=== PATIENT | female | born 1985 | race Caucasian/White ===

== ENCOUNTER 2021-04-05 12:50 | Observation (INO) ==
[2021-04-05 13:45] LABS: Pregnancy Test, Urine Negative (Negative)
[2021-04-05 13:50] LABS: Appearance Urine Clear (Clear); Bacteria Urine Automated Negative (Negative); Blood Urine Negative (Negative); Color Urine Orange; Epithelial Cell Urine Auto >30 /lpf (0-5); Glucose Urine UA Negative (Negative); Ketones Urine Trace (Negative); Leukocyte Esterase Urine Trace (Negative); Nitrite Urine Positive (Negative); Protein Urine Trace (Negative); RBC Urine Automated 0-4 /hpf (0-4); Specific Gravity Urine 1.034 (1.000-1.030); Urobilinogen Urine Negative (Negative); pH Urine 5.5 (4.5-7.5)
[2021-04-05 13:52] LABS: Bilirubin Urine 1+ (Negative)
[2021-04-05] MEDS ORDERED: KETOROLAC TROMETHAMINE 15 MG/ML VIAL IV STA (14:43)
[2021-04-05] MEDS ORDERED: SODIUM CHLORIDE 0.9% 1000ML 1,000 ML IV ONE (14:43)
[2021-04-05] MEDS ORDERED: ONDANSETRON INJ 2 MG/ML 2 ML VIAL IV STA (14:43)
[2021-04-05 15:03] LABS: Basophils # (auto) 0.01 K/uL (0-0.2); Basophils % (auto) 0.1 %; Eosinophils # (auto) 0.02 K/uL (0-0.5); Eosinophils % (auto) 0.1 %; Hematocrit (blood only) 40.4 % (37-47); Hemoglobin 13.6 g/dL (12.0-16.0); Immature Granulocytes # (auto) 0.06 K/uL (0.00-0.02); Immature Granulocytes % (auto) 0.3 %; Lymphocytes # (auto) 0.59 K/uL (1.2-3.4); Mean Corpuscular Hemoglobin 29.6 pg (25-34); Mean Corpuscular Hgb Conc 33.7 g/dL (32-36); Mean Platelet Volume 10.5 fL (7.4-10.4); Monocytes # (auto) 0.57 K/uL (0.11-0.59); Monocytes % (auto) 2.9 %; Neutrophils # (auto) 18.51 K/uL (1.4-6.5); Neutrophils % (auto) 93.6 %; Platelet Count 246 K/uL (130-400); RDW Coefficient of Variation 12.6 % (11.5-14.5); RDW Standard Deviation 40.6 fL (36.4-46.3); Red Blood Count 4.59 M/uL (4.2-5.4); White Blood Count 19.76 K/uL (4.8-10.8)
[2021-04-05] MEDS ORDERED: MoRPHine SULFATE 4 MG/ML 1 ML CARP\\VIAL IV STA (15:11)
[2021-04-05] MEDS ORDERED: SODIUM CHLORIDE 0.9% 1000ML 1,000 ML IV SCH (15:15)
[2021-04-05 15:24] LABS: Albumin Level 3.6 gm/dl (3.4-5.0); BUN Creatinine Ratio 24.1 (10-20); Bilirubin Direct 0.3 mg/dl (0-0.2); Calcium 9.2 mg/dl (8.5-10.1); Creatinine Clr Calc Pharmacy 118.3 ml/min; Potassium 4.3 mmol/L (3.5-5.1)
[2021-04-05 15:27] LABS: Total Protein 7.3 gm/dl (6.4-8.2)
[2021-04-05] MEDS ORDERED: OPTIRAY 320 100ml IV ONE (15:58)
--- NOTE | 2021-04-05 16:19 | CT Scan Report ---
CT abd pelvis IV con only CLINICAL HISTORY: epigastric pain TECHNIQUE: Helical axial images of the abdomen and pelvis were obtained and displayed. Automated dose lowering techniques and/or adjustment according to patient size were utilized for this exam. This e xam was performed with intravenous contrast. COMPARISON: None available at the time of this dictation. FINDINGS: Lower chest: No acute abnormality Liver: Unremarkable. No focal lesions are seen. Gallbladder and biliary tree: No calcified gallstones. Normal caliber wall. There is distention of th e extrahepatic bile duct measuring up to 9 mm in diameter. Pancreas: The pancreas appears edematous and there is significant peripancreatic fluid. No evidence o f pseudocyst is seen. Spleen: Unremarkable. Adrenals: Unremarkable. Kidneys and ureters: Unremarkable. Bladder: Unremarkable. Reproductive organs: Unremarkable. Bowel: Unremarkable. Lymph nodes Retroperitoneal: Unremarkable. Mesenteric: Unremarkable. Pelvic: Unremarkable. Peritoneum: Free fluid is noted in the upper abdomen. Vessels: Unremarkable. Abdominal wall: Unremarkable. Bones: Unremarkable. IMPRESSION: Pancreatic edema and peripancreatic fluid and fat stranding compatible with acute pancreatitis. ACT 112: Negative or not required by law. Electronically signed by: Martell Cardenas M.D. 04/05/2021 4:18 PM
[2021-04-05] MEDS ORDERED: HYDROmorphone INJ 1 MG/ML SYRINGE ONE (16:26)
--- NOTE | 2021-04-05 17:07 | Emergency Department Note ---
History of Present Illness General Chief Complaint: Abdominal Pain Stated Complaint: ABDOMINAL JO, BACK PAIN, SOB Time Seen by Provider: 04/05/21 14:41 History of Present Illness Provider Complaint: abdominal pain Onset (ago): 2 day(s) Pain Consistency: constant Location: epigastric Radiation: none Severity: severe Maximum Pain Intensity: 10 Current Pain Intensity: 10 Quality: + stabbing and + sharp Relieved By: + eating Exacerbated By: + nothing Context: + history of similar episodes (History of pancreatitis ); no foreign travel, no possible food poisoning, no sick contacts, no recent antibiotic use, no recent surgery/procedure or no recent injury Associated Symptoms: + nausea and + vomiting; no diarrhea, no fever, no chills, no constipation, no dysuria, no hematemesis, no hematochezia, no melena, no hematuria, no anorexia, no syncope, no headache, no neck pain, no back pain, no chest pain, no weakness, no breathing difficulty and no numbness Home Medications Medication Instructions Recorded Confirmed Type dextroamphetamine-amphetamine 30 See Rx Instructions .ROUTE .COMPLEX 04/05/21 04/05/21 History mg tablet dextroamphetamine-amphetamine ER 40 mg PO QAM 04/05/21 04/05/21 History 20 mg 24hr capsule,extend release propranolol 10 mg tablet See Rx Instructions .ROUTE .COMPLEX 04/05/21 04/05/21 History trazodone 50 mg tablet 50 mg PO HS PRN 04/05/21 04/05/21 History venlafaxine 150 mg 150 mg PO QAM 04/05/21 04/05/21 History capsule,extended release 24 hr venlafaxine 75 mg capsule,extended 75 mg PO QAM 04/05/21 04/05/21 History release 24 hr Allergies Allergy/AdvReac Type Severity Reaction Status Date / Time No Known Allergies Allergy Unverified 04/05/21 16:02 Past Med/Surg History Medical History (Updated 04/05/21 @ 20:42 by Hong Swan) ADD (attention deficit disorder) Anxiety Congenital anomaly of pancreas Pancreatitis Surgical History (Updated 04/05/21 @ 17:04 by Hong Swan) History of abdominal surgery Family History (Updated 04/05/21 @ 19:56 by Kaelyn Ching PA-C) Other Cancer Diabetes Hypertension Social History (Updated 04/05/21 @ 19:57 by Kaelyn Ching PA-C) Smoking Status: Former smoker Hx Alcohol Use: Yes Alcohol type: beer and wine Alcohol Intake Frequency: 2-4 x/Month Hx Substance Use: No Preferred Language: Gibraltarian Feels Safe at Home: Yes Review of Systems A total of 10 systems reviewed and were otherwise negative Physical Exam Vital Signs: Vital Signs - 24 hr 04/05/21 12:59 04/05/21 14:39 04/05/21 14:47 Temperature 36.4 C L 36.6 C Temperature Source Oral Oral Pulse Rate 109 H 97 H Pulse Rate [Apical ] 96 H Pulse Rate from Sp O2 Sensor 97 H Pulse Rhythm [Apic al] Regular Pulse Strength [Ap ical] Normal Respiratory Rate 16 18 27 H Respiratory Effort / Characteristics Non-Labored Non-Labored Sponta neous Respiratory Depth Normal Normal Respiratory Patter n Blood Pressure 114/76 Blood Pressure [Ri ght Arm] 113/92 Blood Pressure Honey n 88 Blood Pressure Honey n [Right Arm] 99 Blood Pressure Pos ition [Right Arm] Semi-fowlers Pulse Oximetry 99 98 99 Oxygen Delivery Me thod Room Air Sepsis Recent Feve r Within 48 Hours No Sepsis New/Unexpla ined Change in Men lorrie Status No Sepsis Action Take n by Nursing No Action Required 04/05/21 15:00 04/05/21 16:00 Temperature Temperature Source Pulse Rate 92 H Pulse Rate [Apical ] 94 H Pulse Rate from Sp O2 Sensor 92 H Pulse Rhythm [Apic al] Regular Pulse Strength [Ap ical] Normal Respiratory Rate 14 19 Respiratory Effort / Characteristics Non-Labored Sponta neous Respiratory Depth Normal Respiratory Patter n Regular Blood Pressure Blood Pressure [Ri ght Arm] 98/70 L Blood Pressure Honey n Blood Pressure Honey n [Right Arm] 79 Blood Pressure Pos ition [Right Arm] Lying Pulse Oximetry 100 100 Oxygen Delivery Me thod Room Air Sepsis Recent Feve r Within 48 Hours Sepsis New/Unexpla ined Change in Men lorrie Status Sepsis Action Take n by Nursing Physical Exam: Physical Exam GENERAL: She is oriented to person, place, and time. She appears well-developed and well-nourished. She does not appear distressed. HENT: Exam performed. -Head: Normocephalic and atraumatic. -Right Ear: External ear normal. No mastoid tenderness. -Left Ear: External ear normal. No mastoid tenderness. -Mouth/Throat: The oropharynx is clear and moist. No trismus in the jaw. No dental abscesses or uvula swelling. No oropharyngeal exudate or tonsillar abscesses. EYES: Conjunctivae and EOM are normal. Pupils are equal, round, and reactive to light. Right eye exhibits no discharge. Left eye exhibits no discharge. No scleral icterus. NECK: Normal range of motion. Neck supple. No JVD present. No spinous process tenderness present. No carotid bruit present. No rigidity. No tracheal deviation and normal range of motion present. No Brudzinski's sign and no Kernig's sign noted. CV: Normal rate, regular rhythm, normal heart sounds and intact distal pulses. There is no peripheral edema. Palpable radial pulses bue. PULM/CHEST: Effort normal and breath sounds normal. No respiratory distress. No stridor. She has no wheezes. She has no rales. -Chest Wall: She exhibits no tenderness. ABD: The abdomen is soft. Bowel sounds are normal. She has no distension. No mass is present. There is to palpation of the epigastric area tenderness. There is no rebound, no guarding, no Beck's sign and no tenderness at McBurney's point. Rovsig negative MUSC/SKEL: Normal range of motion. There is no peripheral edema, tenderness or deformity. LYMPH: No cervical adenopathy. NEURO: She is alert and oriented to person, place, and time. She has normal strength. No cranial nerve deficit or sensory deficit. Coordination and gait normal. GCS eye subscore is 4. GCS verbal subscore is 5. GCS motor subscore is 6. Cerebellar tests wnl. SKIN: Skin is warm and dry. She is not diaphoretic. PSYCH: She has a normal mood and affect. Behavior is normal. Judgment and thought content normal. Course Course 1441: The patient was evaluated in room C6. A complete history and physical exam was performed Cardiac monitoring: An order was placed for continuous cardiac monitoring. The monitor shows a rate of 900 with sinus rhythm 1700: Vital signs stable. Elevated lipase and CT imaging showing pancreatitis. Patient will be admitted to the [facility] team Dr. Bazan Administered Medications Sodium Chloride (Nss 1000ml) 1,000 mls @ 125 mls/hr IV .Q8H KELSEY Stop: 05/05/21 15:14 Last Admin: 04/05/21 16:31 Dose: 125 mls/hr Documented by: [id number] Discontinued Medications Hydromorphone HCl (Hydromorphone Inj 1 Mg/Ml Syringe) Confirm Administered Dose 1 mg .ROUTE .STK-MED ONE Stop: 04/05/21 16:27 Last Admin: 04/05/21 16:33 Dose: 1 mg Documented by: [id number] Hydromorphone HCl (Hydromorphone Inj 0.5 Mg/0.5 Ml Syr) Confirm Administered Dose 0.5 mg .ROUTE .STK-MED ONE Stop: 04/05/21 19:34 Last Admin: 04/05/21 19:34 Dose: 0.5 mg Documented by: [id number] Sodium Chloride (Nss 1000ml) 1,000 mls @ 999 mls/hr IV .Q1H1M ONE Stop: 04/05/21 15:43 Last Infusion: 04/05/21 16:30 Dose: 0 mls/hr Documented by: [id number] Admin: 04/05/21 14:56 Dose: 999 mls/hr Documented by: [id number] Ioversol (Optiray 320 100ml) 90 ml IV ONCE ONE Stop: 04/05/21 15:59 Last Admin: 04/05/21 15:58 Dose: 90 ml Documented by: [id number] Ketorolac Tromethamine (Ketorolac Tromethamine 15 Mg/Ml Vial) 15 mg IV NOW STA Stop: 04/05/21 14:44 Last Admin: 04/05/21 15:00 Dose: 15 mg Documented by: [id number] Morphine Sulfate (Morphine Sulfate 4 Mg/Ml 1 Ml Carp\Vial) 4 mg IV NOW STA Stop: 04/05/21 15:12 Last Admin: 04/05/21 15:20 Dose: 4 mg Documented by: [id number] Ondansetron HCl (Ondansetron Inj 2 Mg/Ml 2 Ml Vial) 4 mg IV NOW STA Stop: 04/05/21 14:44 Last Admin: 04/05/21 14:59 Dose: 4 mg Documented by: [id number] Medical Decision Making Laboratory Data Result diagrams: 04/05/21 14:51 04/05/21 14:51 Lab Results 04/05/21 04/05/21 04/05/21 Range/Units 13:00 13:00 14:51 WBC 19.76 H (4.8-10.8) K/uL RBC 4.59 (4.2-5.4) M/uL Hgb 13.6 (12.0-16.0) g/dL Hct 40.4 (37-47) % MCV 88.0 (80-100) fL MCH 29.6 (25-34) pg MCHC 33.7 (32-36) g/dL RDW Std Deviation 40.6 (36.4-46.3) fL RDW Coeff of Carmen 12.6 (11.5-14.5) % Plt Count 246 (130-400) K/uL MPV 10.5 H (7.4-10.4) fL Immature Gran % (Auto) 0.3 % Neut % (Auto) 93.6 % Lymph % (Auto) 3.0 % [place] % (Auto) 2.9 % Eos % (Auto) 0.1 % Baso % (Auto) 0.1 % Neut # (Auto) 18.51 H (1.4-6.5) K/uL Lymph # (Auto) 0.59 L (1.2-3.4) K/uL [place] # (Auto) 0.57 (0.11-0.59) K/uL Eos # (Auto) 0.02 (0-0.5) K/uL Baso # (Auto) 0.01 (0-0.2) K/uL Immature Gran # (Auto) 0.06 H (0.00-0.02) K/uL Sodium (136-145) mmol/L Potassium (3.5-5.1) mmol/L Chloride (98-107) mmol/L Carbon Dioxide (21-32) mmol/L Anion Gap (3-11) BUN (7-18) mg/dl Creatinine (0.6-1.2) mg/dl Est Cr Clr Drug Dosing ml/min Est GFR ( Amer) ml/min Est GFR (Non-Af Amer) ml/min BUN/Creatinine Ratio (10-20) Glucose (70-99) mg/dl Calcium (8.5-10.1) mg/dl Total Bilirubin (0.2-1) mg/dl Direct Bilirubin (0-0.2) mg/dl AST (15-37) U/L ALT (12-78) U/L Alkaline Phosphatase (45-117) U/L Total Protein (6.4-8.2) gm/dl Albumin (3.4-5.0) gm/dl Lipase (73-393) U/L Urine Color Snyder Urine Appearance Clear (Clear) Urine pH 5.5 (4.5-7.5) Ur Specific [place] 1.034 H (1.000-1.030) Urine Protein Trace H (Negative) Urine Glucose (UA) Negative (Negative) Urine Ketones Trace H (Negative) Urine Blood Negative (Negative) Urine Nitrite Positive A (Negative) Urine Bilirubin 1+ H (Negative) Urine Urobilinogen Negative (Negative) Ur Leukocyte Esterase Trace H (Negative) Urine WBC (Auto) 1-5 (0-5) /hpf Urine RBC (Auto) 0-4 (0-4) /hpf U Hyaline Cast (Auto) 1-5 (0-5) /lpf U Epithel Cells (Auto) >30 H (0-5) /lpf Urine Bacteria (Auto) Negative (Negative) Urine Test Negative (Negative) 04/05/21 Range/Units 14:51 WBC (4.8-10.8) K/uL RBC (4.2-5.4) M/uL Hgb (12.0-16.0) g/dL Hct (37-47) % MCV (80-100) fL MCH (25-34) pg MCHC (32-36) g/dL RDW Std Deviation (36.4-46.3) fL RDW Coeff of Carmen (11.5-14.5) % Plt Count (130-400) K/uL MPV (7.4-10.4) fL Immature Gran % (Auto) % Neut % (Auto) % Lymph % (Auto) % [place] % (Auto) % Eos % (Auto) % Baso % (Auto) % Neut # (Auto) (1.4-6.5) K/uL Lymph # (Auto) (1.2-3.4) K/uL [place] # (Auto) (0.11-0.59) K/uL Eos # (Auto) (0-0.5) K/uL Baso # (Auto) (0-0.2) K/uL Immature Gran # (Auto) (0.00-0.02) K/uL Sodium 138 (136-145) mmol/L Potassium 4.3 (3.5-5.1) mmol/L Chloride 105 (98-107) mmol/L Carbon Dioxide 26 (21-32) mmol/L Anion Gap 7.0 (3-11) BUN 17 (7-18) mg/dl Creatinine 0.72 (0.6-1.2) mg/dl Est Cr Clr Drug Dosing 118.3 ml/min Est GFR ( Amer) 124.0 ml/min Est GFR (Non-Af Amer) 107.0 ml/min BUN/Creatinine Ratio 24.1 H (10-20) Glucose 103 H (70-99) mg/dl Calcium 9.2 (8.5-10.1) mg/dl Total Bilirubin 1.0 (0.2-1) mg/dl Direct Bilirubin 0.3 H (0-0.2) mg/dl AST 75 H (15-37) U/L ALT 70 (12-78) U/L Alkaline Phosphatase 89 (45-117) U/L Total Protein 7.3 (6.4-8.2) gm/dl Albumin 3.6 (3.4-5.0) gm/dl Lipase 09511 H (73-393) U/L Urine Color Urine Appearance (Clear) Urine pH (4.5-7.5) Ur Specific [place] (1.000-1.030) Urine Protein (Negative) Urine Glucose (UA) (Negative) Urine Ketones (Negative) Urine Blood (Negative) Urine Nitrite (Negative) Urine Bilirubin (Negative) Urine Urobilinogen (Negative) Ur Leukocyte Esterase (Negative) Urine WBC (Auto) (0-5) /hpf Urine RBC (Auto) (0-4) /hpf U Hyaline Cast (Auto) (0-5) /lpf U Epithel Cells (Auto) (0-5) /lpf Urine Bacteria (Auto) (Negative) Urine Test (Negative) Imaging Data Radiologist's Impression: Abdomen/Pelvis CT 04/05/21 15:16 CT abd pelvis IV con only CLINICAL HISTORY: epigastric pain TECHNIQUE: Helical axial images of the abdomen and pelvis were obtained and displayed. Automated dose lowering techniques and/or adjustment according to patient size were utilized for this exam. This exam was performed with intravenous contrast. COMPARISON: None available at the time of this dictation. FINDINGS: Lower chest: No acute abnormality Liver: Unremarkable. No focal lesions are seen. Gallbladder and biliary tree: No calcified gallstones. Normal caliber wall. There is distention of the extrahepatic bile duct measuring up to 9 mm in diameter. Pancreas: The pancreas appears edematous and there is significant peripancreatic fluid. No evidence of pseudocyst is seen. Spleen: Unremarkable. Adrenals: Unremarkable. Kidneys and ureters: Unremarkable. Bladder: Unremarkable. Reproductive organs: Unremarkable. Bowel: Unremarkable. Lymph nodes Retroperitoneal: Unremarkable. Mesenteric: Unremarkable. Pelvic: Unremarkable. Peritoneum: Free fluid is noted in the upper abdomen. Vessels: Unremarkable. Abdominal wall: Unremarkable. Bones: Unremarkable. IMPRESSION: Pancreatic edema and peripancreatic fluid and fat stranding compatible with acute pancreatitis. ACT 112: Negative or not required by law. Electronically signed by: Martell Cardenas M.D. 04/05/2021 4:18 PM MDM Narrative Vital signs stable. Elevated lipase and CT imaging showing pancreatitis. Patient [facility] be [facility] team Dr. Bazan Impression & Plan Pancreatitis Discharge Plan Visit Data Chief Complaint: Abdominal Pain Stated Complaint: ABDOMINAL JO, BACK PAIN, SOB ED Provider: Hong Swan Discharge Problem: Pancreatitis Patient Disposition: Admitted As Inpatient
--- NOTE | 2021-04-05 17:21 | History & Physical Report ---
Date of Service April 05, 2021 History of Present Illness Chief Complaint: abdominal pain Primary Care Provider: Karen Lopez DO Allergies Allergy/AdvReac Type Severity Reaction Status Date / Time No Known Allergies Allergy Unverified 04/05/21 16:02 Home Medications Medication Instructions Recorded Confirmed Type dextroamphetamine-amphetamine 30 See Rx Instructions .ROUTE .COMPLEX 04/05/21 04/05/21 History mg tablet dextroamphetamine-amphetamine ER 40 mg PO QAM 04/05/21 04/05/21 History 20 mg 24hr capsule,extend release propranolol 10 mg tablet See Rx Instructions .ROUTE .COMPLEX 04/05/21 04/05/21 History trazodone 50 mg tablet 50 mg PO HS PRN 04/05/21 04/05/21 History venlafaxine 150 mg 150 mg PO QAM 04/05/21 04/05/21 History capsule,extended release 24 hr venlafaxine 75 mg capsule,extended 75 mg PO QAM 04/05/21 04/05/21 History release 24 hr Past Med/Surg History Medical History (Updated 04/05/21 @ 17:10 by Hong Swan) Congenital anomaly of pancreas No pertinent family history Pancreatitis Surgical History (Updated 04/05/21 @ 17:04 by Hong Swan) History of abdominal surgery Social History Smoking Status: Never smoker Preferred Language: Belarusian Feels Safe at Home: Yes Results & Data Results & Data ([facility]) Vital Signs (Past 12 Hours) Vital Signs Temp Pulse Pulse Resp BP BP Pulse Ox 04/05/21 16:00 94 H 19 98/70 L 100 04/05/21 14:39 36.6 C 96 H 18 113/92 98 04/05/21 12:59 36.4 C L 109 H 16 114/76 99 Supervising Physician Co-Signing Physician Notes Attending Addendum: care coordinated with LANDON Barrow please refer to her notes for full details, I agree with her notes patient seen and examined, records reviewed by myself as well on exam, patient seen resting in bed, sitting up not in distress, very pleasant states her abdominal pain is better, 7/10 no fever/chills no chest pain, dyspnea, palpitations, dizziness no other symptoms VS noted and reviewed oriented x 3, not in distress, speaks in sentences with no effort nor accessory muscle use normal rate, regular rhythm, no murmurs clear breath sounds bilaterally non distended, soft, (+) moderate tenderness on all quadrants no bipedal edema, erythema, warmth no neuro deficits WBC 19.7 Hg 13.6 Crea 0.72 Lipase 21,568 CT abd/pelvis: Pancreatic edema and peripancreatic fluid and fat stranding compatible with acute pancreatitis. ASSESSMENT AND PLAN> ACUTE PANCREATITIS, RECURRENT LIKELY RELATED TO ALCOHOL INTAKE LFTs within normal limits except for mild AST 75 elevation NPO except ice chips, sips LR at 200cc/hr Pain control, antiemetic GI Consult other diagnoses and plan of care as per LANDON Cavanaugh notes Nilay Bazan MD
[2021-04-05] MEDS ORDERED: HYDROmorphone INJ 0.5 MG/0.5 ML SYR ONE (19:33)
--- NOTE | 2021-04-05 19:47 | Gastrointestinal Consultation ---
Date of Consultation April 05, 2021 Supervising Physician Co-Signing Physician Notes Recurrent pancreatitis, history of pancreas surgery as a child, she reports this is her fourth episode of pancreatitis. Obtain MRCP IV fluids NPO Trend lft's ? idopathic recurrent pancreatitis given history versus gallstone pancreatitis. History of Present Illness Reason for Consultation: Abdominal pain/pancreatitis Requesting Physician: [place] History of Present Illness 35 yo fm with a history of abdominal pain that brought her into the er. Workup thus far showing pancreatitis per imaging and also per lipase elevation. No associated fevers, chills, chest pain, + nausea, + bilious vomiting x 2, no diarrhea, no hematemesis, no hematochezia, no weight loss. 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 Thereafter since [facility] with 3 episodes of pancreatitis since 2005 that were related to etoh use she was told. She has not had a bout of pancreatitis since 2017. Never seen by GI at the [facility], but follows with Dr. Lopez. Currently pain is a bit better after fluids though feeling like it is about to get worse. Denies nsaid use, no new herbal supplements or medications, no recent singificant etoh use (she drinks 1-2 drinks a few times a week), no travel, no recent history of covid that she is aware of, denies recent ingestion of fatty foods, no issues with high cholesterol. She still has her gallbladder. Pmhx: None Pshx: Pancreas reconstruction Soc hx: With 3 kids Social etoh use No other drug use Allergies Allergy/AdvReac Type Severity Reaction Status Date / Time No Known Allergies Allergy Unverified 04/05/21 16:02 Home Medications Medication Instructions Recorded Confirmed Type dextroamphetamine-amphetamine 30 See Rx Instructions .ROUTE .COMPLEX 04/05/21 04/05/21 History mg tablet dextroamphetamine-amphetamine ER 40 mg PO QAM 04/05/21 04/05/21 History 20 mg 24hr capsule,extend release propranolol 10 mg tablet See Rx Instructions .ROUTE .COMPLEX 04/05/21 04/05/21 History trazodone 50 mg tablet 50 mg PO HS PRN 04/05/21 04/05/21 History venlafaxine 150 mg 150 mg PO QAM 04/05/21 04/05/21 History capsule,extended release 24 hr venlafaxine 75 mg capsule,extended 75 mg PO QAM 04/05/21 04/05/21 History release 24 hr Patient History Medical History (Updated 04/05/21 @ 17:10 by Hong Swan) Congenital anomaly of pancreas No pertinent family history Pancreatitis Surgical History (Updated 04/05/21 @ 17:04 by Hong Swan) History of abdominal surgery Social History Smoking Status: Never smoker Preferred Language: Telugu Feels Safe at Home: Yes Review of Systems Review of Systems: All systems reviewed & are unremarkable except as noted in HPI & below Physical Exam Physical Exam: Well nourished fm in nad Eyes: PERRL, conjunctivae normal, anicteric sclerae Respiratory: normal respiratory effort, lungs clear to auscultation Gastrointestinal (Abdomen): normal bowel sounds, soft, nontender, no hepatosplenomegaly Neurologic: PERRL, EOMI, accommodation nl, no face palsy, no dysarthria Results & Data ([facility]) Vital Signs (Past 12 Hours) Vital Signs Temp Pulse Pulse Resp BP BP Pulse Ox 04/05/21 19:00 94 H 20 101/64 100 04/05/21 16:00 94 H 19 98/70 L 100 04/05/21 15:00 92 H 14 100 04/05/21 14:47 97 H 27 H 99 04/05/21 14:39 36.6 C 96 H 18 113/92 98 04/05/21 12:59 36.4 C L 109 H 16 114/76 99 Laboratory Results Lipase elevation TB normal Slight wbc count elevation Rest of bmp is normal Mild lft bump Diagnostic Findings Imaging reviewed- ? cbd dilation
--- NOTE | 2021-04-05 20:01 | History & Physical Report ---
Date of Service April 05, 2021 Assessment & Plan (1) Pancreatitis: Plan: Acute pancreatitis H/O recurrent pancreatitis Patient is 35-year-old female with history recurrent pancreatitis, ADD, anxiety scented to ER with complaint of abdominal pain x1 day. Upper abdominal pain radiating to back, nausea. Prior h/o pancreatitic surgery as a child. 2 glasses wine last night. In ER patient afebrile, P: 109 down to 94, BP 114/76, 99% on room air. WBC: 19, lipase: 21,000, T bili: 1.0, AST: 75, ALT: 70, alk phos: 89 In ER given Toradol, Dilaudid, 1 L NSS, Zofran N.p.o. LR at 200 mL/hour Antinausea and pain control as needed GI consult CBC, CMP, lipase in a.m. (2) ADD (attention deficit disorder): (3) Anxiety: Plan: Continue home meds DVT Prophylaxis -SCDs Follows with Dr Karen Lopez for routine care Pt was seen and care coordinated with Dr Bazan. See addendum History of Present Illness Chief Complaint: Abdominal pain Primary Care Provider: Karen Lopez DO Patient is 35-year-old female with history recurrent pancreatitis, ADD, anxiety scented to ER with complaint of abdominal pain x1 day. Patient reports upper abdominal pain radiating to back. Also complains of nausea. She reports this feels like prior episodes of pancreatitis. Reports this morning pain was intense and felt like it caused her to be SOB. Denies SOB currently. Patient reports had history surgery on pancreas when she was 3 years old, she thinks she had pancreas divisum. Patient states prior episodes of pancreatitis have been triggered by alcohol. She reports she had 2 glasses of wine last night. Denies fever/chills, diaphoresis, V/D/C, RODRIGUEZ, dizziness, syncope, vision changes, neck pain, CP, orthopnea, palpitations, cough, sore throat, choking, otalgia, rhinorrhea, paresthesias, weakness, extremity weakness, extremity edema, rashes, urinary symptoms. In ER patient afebrile, P: 109 down to 94, BP 114/76, 99% on room air. WBC: 19, lipase: 21,000, T bili: 1.0, AST: 75, ALT: 70, alk phos: 89 In ER given Toradol, Dilaudid, 1 L NSS, Zofran Allergies Allergy/AdvReac Type Severity Reaction Status Date / Time No Known Allergies Allergy Unverified 04/05/21 16:02 Home Medications Medication Instructions Recorded Confirmed Type dextroamphetamine-amphetamine 30 See Rx Instructions .ROUTE .COMPLEX 04/05/21 04/05/21 History mg tablet dextroamphetamine-amphetamine ER 40 mg PO QAM 04/05/21 04/05/21 History 20 mg 24hr capsule,extend release propranolol 10 mg tablet See Rx Instructions .ROUTE .COMPLEX 04/05/21 04/05/21 History trazodone 50 mg tablet 50 mg PO HS PRN 04/05/21 04/05/21 History venlafaxine 150 mg 150 mg PO QAM 04/05/21 04/05/21 History capsule,extended release 24 hr venlafaxine 75 mg capsule,extended 75 mg PO QAM 04/05/21 04/05/21 History release 24 hr Past Med/Surg History Medical History (Updated 04/05/21 @ 20:42 by Hong Swan) ADD (attention deficit disorder) Anxiety Congenital anomaly of pancreas Pancreatitis Surgical History (Updated 04/05/21 @ 17:04 by Hong Swan) History of abdominal surgery Family History (Updated 04/05/21 @ 19:56 by Kaelyn Ching PA-C) Other Cancer Diabetes Hypertension Social History (Updated 04/05/21 @ 19:57 by Kaelyn Ching PA-C) Smoking Status: Former smoker Second Hand Exposure: No; Do You Dip or Chew Tobacco: No; Hx Alcohol Use: Yes Alcohol type: wine Alcohol Intake Frequency: 2-4 x/Month Hx Substance Use: No Preferred Language: Spanish [employer] Required: No Beliefs That Will Affect Care: None Current Living Situation: Spouse and Family Other Information That Helps Us Care for You: No Feels Safe at Home: Yes Safety Concerns: Feels Safe At This Time Assistive Devices: Contacts and Glasses Review of Systems Review of Systems: All systems reviewed & are unremarkable except as noted in HPI & below Physical Exam Physical Exam: General: no distress, WDWN Head: normocephalic, atraumatic Eyes: PERRL, EOM's intact, conjunctiva non-injected, anicteric ENT: normal inspection external ears, nose, mucous membranes moist Neck: supple, trachea midline, non-tender Lungs: clear, no respiratory distress, no wheezing/rhonchi/rales CV: RRR, no murmur, no JVD, no pretibial edema Abd: normal BS, soft, non-tender Ext: no cyanosis, no calf tenderness Neuro: A&O x 3, no focal deficits noted, normal affect Skin: warm, dry Results & Data Results & Data ([facility]) Vital Signs (Past 12 Hours) Vital Signs Temp Pulse Pulse Resp BP BP Pulse Ox 04/05/21 19:00 94 H 20 101/64 100 04/05/21 16:00 94 H 19 98/70 L 100 04/05/21 15:00 92 H 14 100 04/05/21 14:47 97 H 27 H 99 04/05/21 14:39 36.6 C 96 H 18 113/92 98 04/05/21 12:59 36.4 C L 109 H 16 114/76 99 Laboratory Results Short CBC 04/05/21 Range/Units 14:51 WBC 19.76 H (4.8-10.8) K/uL Hgb 13.6 (12.0-16.0) g/dL Hct 40.4 (37-47) % Plt Count 246 (130-400) K/uL BMP 04/05/21 14:51 Sodium 138 Potassium 4.3 Chloride 105 Carbon Dioxide 26 BUN 17 Creatinine 0.72 Glucose 103 H Calcium 9.2 Liver Function 04/05/21 Range/Units 14:51 Total Bilirubin 1.0 (0.2-1) mg/dl Direct Bilirubin 0.3 H (0-0.2) mg/dl AST 75 H (15-37) U/L ALT 70 (12-78) U/L Alkaline Phosphatase 89 (45-117) U/L Albumin 3.6 (3.4-5.0) gm/dl Urine 04/05/21 Range/Units 13:00 Urine Color [place] Urine Appearance Clear (Clear) Urine pH 5.5 (4.5-7.5) Ur Specific [place] 1.034 H (1.000-1.030) Urine Protein Trace H (Negative) Urine Glucose (UA) Negative (Negative) Diagnostic Findings Abdomen/Pelvis CT 04/05/21 15:16 CT abd pelvis IV con only CLINICAL HISTORY: epigastric pain TECHNIQUE: Helical axial images of the abdomen and pelvis were obtained and displayed. Automated dose lowering techniques and/or adjustment according to patient size were utilized for this exam. This exam was performed with intravenous contrast. COMPARISON: None available at the time of this dictation. FINDINGS: Lower chest: No acute abnormality Liver: Unremarkable. No focal lesions are seen. Gallbladder and biliary tree: No calcified gallstones. Normal caliber wall. There is distention of the extrahepatic bile duct measuring up to 9 mm in diameter. Pancreas: The pancreas appears edematous and there is significant peripancreatic fluid. No evidence of pseudocyst is seen. Spleen: Unremarkable. Adrenals: Unremarkable. Kidneys and ureters: Unremarkable. Bladder: Unremarkable. Reproductive organs: Unremarkable. Bowel: Unremarkable. Lymph nodes Retroperitoneal: Unremarkable. Mesenteric: Unremarkable. Pelvic: Unremarkable. Peritoneum: Free fluid is noted in the upper abdomen. Vessels: Unremarkable. Abdominal wall: Unremarkable. Bones: Unremarkable. IMPRESSION: Pancreatic edema and peripancreatic fluid and fat stranding compatible with acute pancreatitis. ACT 112: Negative or not required by law. Electronically signed by: Martell Cardenas M.D. 04/05/2021 4:18 PM Supervising Physician Co-Signing Physician Notes Attending Addendum: care coordinated with LANDON Barrow please refer to her notes for full details, I agree with her notes patient seen and examined, records reviewed by myself as well on exam, patient seen resting in bed, sitting up not in distress, very pleasant states her abdominal pain is better, 7/10 no fever/chills no chest pain, dyspnea, palpitations, dizziness no other symptoms VS noted and reviewed oriented x 3, not in distress, speaks in sentences with no effort nor accessory muscle use normal rate, regular rhythm, no murmurs clear breath sounds bilaterally non distended, soft, (+) moderate tenderness on all quadrants no bipedal edema, erythema, warmth no neuro deficits WBC 19.7 Hg 13.6 Crea 0.72 Lipase 21,568 CT abd/pelvis:Pancreatic edema and peripancreatic fluid and fat stranding compatible with acute pancreatitis. ASSESSMENT AND PLAN> ACUTE PANCREATITIS, RECURRENT LIKELY RELATED TO ALCOHOL INTAKE LFTs within normal limits except for mild AST 75 elevation NPO except ice chips, sips LR at 200cc/hr Pain control, antiemetic GI Consult other diagnoses and plan of care as per LANDON Bazan MD
[2021-04-05] MEDS: LACTATED RINGER'S 1,000 ML IV SCH (21:30)
[2021-04-05] MEDS ORDERED: PROMETHAZINE HCL 12.5 MG in SODIUM CHLORIDE 0.9% 50 ML IV PRN (21:30)
[2021-04-06] MEDS: HYDROmorphone INJ 0.5 MG/0.5 ML SYR IV PRN ×4 (01:29→19:49)
[2021-04-06] MEDS: LACTATED RINGER'S 1,000 ML IV SCH ×5 (01:48→23:01)
[2021-04-06] MEDS: VENLAFAXINE HCL XR 150 MG CAPXR PO SCH (07:57)
[2021-04-06] MEDS: VENLAFAXINE HCL XR 75 MG CAPXR PO SCH (07:57)
[2021-04-06 09:19] LABS: Hematocrit (blood only) 33.3 % (37-47); Hemoglobin 11.1 g/dL (12.0-16.0); Mean Corpuscular Hemoglobin 29.7 pg (25-34); Mean Corpuscular Hgb Conc 33.3 g/dL (32-36); Mean Platelet Volume 10.6 fL (7.4-10.4); Platelet Count 210 K/uL (130-400); RDW Standard Deviation 42.1 fL (36.4-46.3); Red Blood Count 3.74 M/uL (4.2-5.4); White Blood Count 12.21 K/uL (4.8-10.8)
[2021-04-06 09:47] LABS: Basophils # (auto) 0.01 K/uL (0-0.2); Basophils % (auto) 0.1 %; Eosinophils # (auto) 0.07 K/uL (0-0.5); Eosinophils % (auto) 0.6 %; Immature Granulocytes # (auto) 0.02 K/uL (0.00-0.02); Immature Granulocytes % (auto) 0.2 %; Lymphocytes # (auto) 0.92 K/uL (1.2-3.4); Lymphocytes % (auto) 7.5 %; Monocytes # (auto) 0.62 K/uL (0.11-0.59); Monocytes % (auto) 5.1 %; Neutrophils # (auto) 10.57 K/uL (1.4-6.5); Neutrophils % (auto) 86.5 %
[2021-04-06 09:56] LABS: Alanine Aminotransferase 41 U/L (12-78); Albumin Globulin Ratio 0.8 (0.9-2); Albumin Level 2.6 gm/dl (3.4-5.0); Alkaline Phosphatase 77 U/L (45-117); Aspartate Aminotransferase 28 U/L (15-37); BUN Creatinine Ratio 11.9 (10-20); Bilirubin,Total 0.6 mg/dl (0.2-1); Blood Urea Nitrogen 8 mg/dl (7-18); Calcium 8.4 mg/dl (8.5-10.1); Carbon Dioxide 24 mmol/L (21-32); Chloride 110 mmol/L (98-107); Creatinine Clr Calc Pharmacy 135.8 ml/min; Est GFR (African American) 132.1 ml/min; Globulin 3.2 gm/dl (2.5-4.0); Glucose 80 mg/dl (70-99); Lipase 8525 U/L (73-393); Potassium 3.5 mmol/L (3.5-5.1); Sodium 140 mmol/L (136-145); Total Protein 5.8 gm/dl (6.4-8.2)
[2021-04-06 10:53] LABS: Bilirubin Direct < 0.1 mg/dl (0-0.2)
[2021-04-06] MEDS ORDERED: traMADol HCL 50 MG TABLET PO PRN (13:10)
[2021-04-06] MEDS: AMPHETAMINE ASP/SULF/DEXTRAMPH ER 20 MG CAP PO SCH (13:13)
[2021-04-06] MEDS: ACETAMINOPHEN 325 MG TAB PO PRN (13:23)
--- NOTE | 2021-04-06 13:27 | Communication Note ---
Date of Service: April 06, 2021 Would recommend MRCP for further evaluation of pancreatitis. Continue IV fluids, once feeling better, consider clear liquids if mrcp is negative.
--- NOTE | 2021-04-06 15:33 | Hospitalist Progress Note ---
Date of Service April 06, 2021 Assessment & Plan (1) Pancreatitis: Plan: per LANDON Kaelyn Barrow notes: pancreatitis H/O recurrent pancreatitis Patient is 35-year-old female with history recurrent pancreatitis, ADD, anxiety scented to ER with complaint of abdominal pain x1 day. Upper abdominal pain radiating to back, nausea. Prior h/o pancreatitic surgery as a child. 2 glasses wine last night. In ER patient afebrile, P: 109 down to 94, BP 114/76, 99% on room air. WBC: 19, lipase: 21,000, T bili: 1.0, AST: 75, ALT: 70, alk phos: 89 In ER given Toradol, Dilaudid, 1 L NSS, Zofran 04/23/2021 MRCP pending Patient's abdominal pain slightly improved today Lipase trending down Afebrile, leukocytosis trending down as well Follow-up MRCP Continue n.p.o. with sips of water, ice chips Continue IV LR 200 cc/h Continue pain control As needed Tylenol, tramadol ordered GI on board (2) ADD (attention deficit disorder): (3) Anxiety: Plan: Continue home meds DVT Prophylaxis -SCDs Follows with Dr Karen Lopez for routine care Nilay Bazan MD plan of care discussed with patient in detail and at length all questions answered she is understanding, agreeable, comfortable with the plan of care Admission and Anticipated Discharge Date Admission Date: April 05, 2021 Subjective Follow-up for acute pancreatitis, etc. Seen resting in bed, comfortable, not in distress States abdominal pain is slightly improved today, 5/10 No nausea, vomiting, shortness of breath, chest pain, fevers or chills Reports moderate frontal headache, no focal neurologic deficits No other symptoms Review of Systems Review of Systems: all noted and negative except for above Physical Exam Physical Exam: General- oriented x 3, not in distress, speaks in sentences with no effort or accessory muscle use Eyes- anicteric Neck- no JVD Lungs- clear breath sounds bilaterally, no rales/wheezes Heart- normal rate, regular rhythm; no murmurs Abdomen- normal bowel sounds, nondistended, soft, mild tenderness upper quadrants Extremities- no pretibial edema, no calf tenderness Neuro- alert, oriented x 3; no gross focal neurologic deficits Skin- warm & dry Results & Data Results & Data ([facility]) Vital Signs (Past 12 Hours) Vital Signs Temp Pulse Resp BP Pulse Ox 04/06/21 11:36 36.7 C 98 H 18 105/70 96 04/06/21 07:50 36.7 C 99 H 18 107/70 95 all noted and reviewed including below (1) Pancreatitis Acute pancreatitis complication: unspecified Chronicity: acute Pancreatitis type: unspecified pancreatitis type Qualified Code(s): K85.90 - Acute pancreatitis without necrosis or infection, unspecified
--- NOTE | 2021-04-06 19:12 | Magnetic Resonance Report ---
MR MRCP CLINICAL HISTORY: acute pancreatitis TECHNIQUE: Multiplanar multisequence MR images of the abdomen were obtained, as per MRCP protocol. is protocol consists of 3 plane localizer images, axial T1, axial T2, axial T2 fat saturated, coronal T2, MRCP single and MRCP volume sequences of the abdomen were obtained, without intravenous contrast . 1 mg of intramuscular glucagon was administered.. COMPARISON: CT of the abdomen and pelvis from 04/05/2021 FINDINGS: Liver: There is homogeneous signal intensity seen within the liver. No mass lesions are seen. There i s no evidence for intrahepatic or duct dilatation. Gallbladder: The gallbladder is not visualized. Clinical correlation is necessary as to the possibili ty of previous cholecystectomy. Spleen: There is homogeneous signal throughout the splenic parenchyma. No mass lesions are seen. Pancreas: There is again diffuse increased signal seen within the pancreas with peripancreatic fluid seen. Fluid also is extension the subhepatic space. The findings are again characteristic of pancreat itis. Kidneys: There is homogeneous signal throughout the renal parenchyma bilaterally. The right kidney is rotated in its axis. Adrenal glands: There is homogeneous signal demonstrated with no gross mass seen. Abdominal cavity: There is no gross bowel dilatation. There is no evidence for ascites or adenopathy. The aorta is normal in caliber. The visualized osseous structures, demonstrate no evidence of abnormal signal intensity. MRCP: The common bile duct is normal in course. Compared to the recent CT, it is again mildly dilated measuring 9 mm. This is most likely physiologic status post previous cholecystectomy. Clinical corre lation is necessary has no history of cholecystectomy was provided. There are no definite intralumina l filling defects or evidence for choledocholithiasis. There is no intrahepatic duct dilatation. IMPRESSION: 1. CT findings characteristic of pancreatitis are again seen with peripancreatic fluid and fluid exte nding into the subhepatic space. 2. It appears that the patient is status post previous cholecystectomy. Clinical correlation is neces mell. 3. There is mild dilatation of the common bile duct which is most likely physiologic status post chol ecystectomy. No intraluminal filling defects or evidence for choledocholithiasis. ACT 112: Negative or not required by law. Electronically signed by: Alberto Ragland M.D. 04/06/2021 7:10 PM
[2021-04-06] MEDS: DOCUSATE SODIUM 100 MG CAP PO SCH (21:08)
[2021-04-07] MEDS: LACTATED RINGER'S 1,000 ML IV SCH ×2 (03:51→08:39)
[2021-04-07] MEDS: DOCUSATE SODIUM 100 MG CAP PO SCH (08:14)
[2021-04-07] MEDS: ACETAMINOPHEN 325 MG TAB PO PRN (08:14)
[2021-04-07] MEDS: VENLAFAXINE HCL XR 150 MG CAPXR PO SCH (08:14)
[2021-04-07] MEDS: VENLAFAXINE HCL XR 75 MG CAPXR PO SCH (08:14)
[2021-04-07] MEDS: AMPHETAMINE ASP/SULF/DEXTRAMPH ER 20 MG CAP PO SCH (08:15)
[2021-04-07] MEDS ORDERED: KETOROLAC TROMETHAMINE 15 MG/ML VIAL IV PRN (09:08)
[2021-04-07 09:32] LABS: Basophils # (auto) 0.01 K/uL (0-0.2); Basophils % (auto) 0.1 %; Eosinophils # (auto) 0.11 K/uL (0-0.5); Eosinophils % (auto) 1.5 %; Hematocrit (blood only) 33.1 % (37-47); Hemoglobin 10.9 g/dL (12.0-16.0); Immature Granulocytes # (auto) 0.02 K/uL (0.00-0.02); Immature Granulocytes % (auto) 0.3 %; Lymphocytes # (auto) 1.03 K/uL (1.2-3.4); Lymphocytes % (auto) 14.1 %; Mean Corpuscular Hemoglobin 29.5 pg (25-34); Mean Corpuscular Hgb Conc 32.9 g/dL (32-36); Mean Corpuscular Volume 89.5 fL (80-100); Mean Platelet Volume 10.6 fL (7.4-10.4); Monocytes # (auto) 0.35 K/uL (0.11-0.59); Monocytes % (auto) 4.8 %; Neutrophils % (auto) 79.2 %; Platelet Count 242 K/uL (130-400); RDW Coefficient of Variation 12.8 % (11.5-14.5); RDW Standard Deviation 41.7 fL (36.4-46.3); White Blood Count 7.32 K/uL (4.8-10.8)
[2021-04-07 09:48] LABS: Albumin Level 2.6 gm/dl (3.4-5.0); BUN Creatinine Ratio 6.5 (10-20); Creatinine Clr Calc Pharmacy 127.9 ml/min; Est GFR (African American) 129.5 ml/min; Est GFR (Non-African American) 111.7 ml/min; Potassium 3.5 mmol/L (3.5-5.1)
[2021-04-07 09:51] LABS: Albumin Globulin Ratio 0.7 (0.9-2); Bilirubin,Total 0.4 mg/dl (0.2-1); Globulin 3.7 gm/dl (2.5-4.0); Total Protein 6.3 gm/dl (6.4-8.2)
--- NOTE | 2021-04-07 11:02 | Gastroenterology Progress Note ---
Date of Service April 07, 2021 Assessment & Plan Admission and Anticipated Discharge Date Admission Date: April 05, 2021 Supervising Physician Co-Signing Physician Notes Given improvement in pain, consider advancing diet today. Ok to dc home from a gi perspective once tolerating po. Outpt eus will be considered in 4-6 weeks. She was advised to avoid ethanol all together for next 4-6 weeks. Etiology is still- ? idiopathic versus retained. She stated to me that someone said to her she still has a gallbladder and I'm not clear bc she told me it was removed in addition to part of her pancreas. She's going to go thru her prior medical records. Her MRCP states the gb was not visualized. Subjective Her pain is much improved Had a bm this am. Tolerating clear liquids. Review of Systems Review of Systems: All systems reviewed & are unremarkable except as noted in HPI & below Physical Exam Physical Exam: Well nourished fm in nad Eyes: PERRLA Gastrointestinal (Abdomen): Soft nt nd Neurologic: Alert and oriented to person,place, time Results & Data ([facility]) Vital Signs (Past 12 Hours) Vital Signs Temp Pulse Resp BP Pulse Ox 04/07/21 08:10 36.6 C 83 18 120/80 96 04/06/21 23:03 36.5 C 85 16 108/57 L 96 Laboratory Results Lipase elevation still but wbc count has normalized Diagnostic Findings MRCP was reviewed- cbd dilation to 9 mm which is stated to be post riana, gb was not visualized. Prior CT report reviewed
--- NOTE | 2021-04-07 16:50 | Hospitalist Progress Note ---
Date of Service April 07, 2021 Assessment & Plan (1) Pancreatitis: Plan: Acute pancreatitis H/O recurrent pancreatitis Etiology unclear-idiopathic? Alcohol-related? Patient is 35-year-old female with history recurrent pancreatitis, ADD, anxiety scented to ER with complaint of abdominal pain x1 day. Upper abdominal pain radiating to back, nausea. Prior h/o pancreatitic surgery as a child. 2 glasses wine last night. In ER patient afebrile, P: 109 down to 94, BP 114/76, 99% on room air. WBC: 19, lipase: 21,000, T bili: 1.0, AST: 75, ALT: 70, alk phos: 89 In ER given Toradol, Dilaudid, 1 L NSS, Zofran 04/07/2021 MRCP: 1. CT findings characteristic of pancreatitis are again seen with peripancreatic fluid and fluid extending into the subhepatic space. 2. It appears that the patient is status post previous cholecystectomy. Clinical correlation is necessary. 3. There is mild dilatation of the common bile duct which is most likely physiologic status post cholecystectomy. No intraluminal filling defects or evidence for choledocholithiasis. Abdominal pain mostly resolved Afebrile Lipase level trending down from 21,000-2000 Tolerating clear liquids well, advance to soft diet GI recommending outpatient endoscopic ultrasound in 4 to 6 weeks (2) ADD (attention deficit disorder): (3) Anxiety: Plan: Continue home meds DVT Prophylaxis -SCDs Admission and Anticipated Discharge Date Admission Date: April 05, 2021 Subjective Follow-up for acute pancreatitis, etc. Seen resting in bed, comfortable, not in distress, in good spirits States she feels much better today Abdominal pain is 0-2 out of 10 Tolerating clear liquids well, no nausea, fevers or chills no chest pain, dyspnea, palpitations, dizziness No other symptoms Review of Systems Review of Systems: all noted and negative except for above Physical Exam Physical Exam: General- oriented x 3, not in distress, speaks in sentences with no effort or accessory muscle use Eyes- anicteric Neck- no JVD Lungs- clear breath sounds bilaterally, no crackles Heart- normal rate, regular rhythm; no murmurs Abdomen- normal bowel sounds, nondistended, soft, nontender Extremities- no pretibial edema, no calf tenderness Neuro- alert, oriented x 3; no gross focal neurologic deficits Skin- warm & dry Results & Data Results & Data ([facility]) Vital Signs (Past 12 Hours) Vital Signs Temp Pulse Resp BP Pulse Ox 04/07/21 15:56 36.6 C 80 18 118/58 L 99 04/07/21 08:10 36.6 C 83 18 120/80 96 all noted and reviewed including below (1) Pancreatitis Acute pancreatitis complication: unspecified Chronicity: acute Pancreatitis type: unspecified pancreatitis type Qualified Code(s): K85.90 - Acute pancreatitis without necrosis or infection, unspecified
--- NOTE | 2021-04-07 19:01 | Discharge Summary ---
Date of Service April 07, 2021 Admission HPI Per Admitting Provider Patient is 35-year-old female with history recurrent pancreatitis, ADD, anxiety scented to ER with complaint of abdominal pain x1 day. Patient reports upper abdominal pain radiating to back. Also complains of nausea. She reports this feels like prior episodes of pancreatitis. Reports this morning pain was intense and felt like it caused her to be SOB. Denies SOB currently. Patient reports had history surgery on pancreas when she was 3 years old, she thinks she had pancreas divisum. Patient states prior episodes of pancreatitis have been triggered by alcohol. She reports she had 2 glasses of wine last night. Denies fever/chills, diaphoresis, V/D/C, RODRIGUEZ, dizziness, syncope, vision changes, neck pain, CP, orthopnea, palpitations, cough, sore throat, choking, otalgia, rhinorrhea, paresthesias, weakness, extremity weakness, extremity edema, rashes, urinary symptoms. In ER patient afebrile, P: 109 down to 94, BP 114/76, 99% on room air. WBC: 19, lipase: 21,000, T bili: 1.0, AST: 75, ALT: 70, alk phos: 89 In ER given Toradol, Dilaudid, 1 L NSS, Zofran Admission Exam (Per Admitting) Constitutional General: no distress, WDWN Head: normocephalic, atraumatic Eyes: PERRL, EOM's intact, conjunctiva non-injected, anicteric ENT: normal inspection external ears, nose, mucous membranes moist Neck: supple, trachea midline, non-tender Lungs: clear, no respiratory distress, no wheezing/rhonchi/rales CV: RRR, no murmur, no JVD, no pretibial edema Abd: normal BS, soft, non-tender Ext: no cyanosis, no calf tenderness Neuro: A&O x 3, no focal deficits noted, normal affect Skin: warm, dry Discharge Data Consultations 04/05/21 15:11 ED Decision to Admit Stat 04/06/21 07:00 Consult Gastroenterology Routine Procedures Performed ADDENDUM Limited evaluation due to peripancreatic fluid, however the gallbladder appears surgically absent. There is likely physiologic dilation of the extrahepatic bile duct. Electronically signed by: Martell Cardenas M.D. 04/06/2021 7:[address] abd pelvis IV con only CLINICAL HISTORY: epigastric pain TECHNIQUE: Helical axial images of the abdomen and pelvis were obtained and displayed. Automated dose lowering techniques and/or adjustment according to patient size were utilized for this exam. This exam was performed with intravenous contrast. COMPARISON: None available at the time of this dictation. FINDINGS: Lower chest: No acute abnormality Liver: Unremarkable. No focal lesions are seen. Gallbladder and biliary tree: No calcified gallstones. Normal caliber wall. There is distention of the extrahepatic bile duct measuring up to 9 mm in diameter. Pancreas: The pancreas appears edematous and there is significant peripancreatic fluid. No evidence of pseudocyst is seen. Spleen: Unremarkable. Adrenals: Unremarkable. Kidneys and ureters: Unremarkable. Bladder: Unremarkable. Reproductive organs: Unremarkable. Bowel: Unremarkable. Lymph nodes Retroperitoneal: Unremarkable. Mesenteric: Unremarkable. Pelvic: Unremarkable. Peritoneum: Free fluid is noted in the upper abdomen. Vessels: Unremarkable. Abdominal wall: Unremarkable. Bones: Unremarkable. IMPRESSION: Pancreatic edema and peripancreatic fluid and fat stranding compatible with acute pancreatitis. ACT 112: Negative or not required by law. Electronically signed by: Martell Cardenas M.D. 04/05/2021 4:18 PM MR MRCP CLINICAL HISTORY: acute pancreatitis TECHNIQUE: Multiplanar multisequence MR images of the abdomen were obtained, as per MRCP protocol. This protocol consists of 3 plane localizer images, axial T1, axial T2, axial T2 fat saturated, coronal T2, MRCP single and MRCP volume sequences of the abdomen were obtained, without intravenous contrast. 1 mg of intramuscular glucagon was administered.. COMPARISON: CT of the abdomen and pelvis from 04/05/2021 FINDINGS: Liver: There is homogeneous signal intensity seen within the liver. No mass lesions are seen. There is no evidence for intrahepatic or duct dilatation. Gallbladder: The gallbladder is not visualized. Clinical correlation is necessary as to the possibility of previous cholecystectomy. Spleen: There is homogeneous signal throughout the splenic parenchyma. No mass lesions are seen. Pancreas: There is again diffuse increased signal seen within the pancreas with peripancreatic fluid seen. Fluid also is extension the subhepatic space. The findings are again characteristic of pancreatitis. Kidneys: There is homogeneous signal throughout the renal parenchyma bilater ally. The right kidney is rotated in its axis. Adrenal glands: There is homogeneous signal demonstrated with no gross mass seen. Abdominal cavity: There is no gross bowel dilatation. There is no evidence for ascites or adenopathy. The aorta is normal in caliber. The visualized osseous structures, demonstrate no evidence of abnormal signal intensity. MRCP: The common bile duct is normal in course. Compared to the recent CT, it is again mildly dilated measuring 9 mm. This is most likely physiologic status post previous cholecystectomy. Clinical correlation is necessary has no history of cholecystectomy was provided. There are no definite intraluminal filling defects or evidence for choledocholithiasis. There is no intrahepatic duct dilatation. IMPRESSION: 1. CT findings characteristic of pancreatitis are again seen with peripancreatic fluid and fluid extending into the subhepatic space. 2. It appears that the patient is status post previous cholecystectomy. Clinical correlation is necessary. 3. There is mild dilatation of the common bile duct which is most likely physiologic status post cholecystectomy. No intraluminal filling defects or evidence for choledocholithiasis. ACT 112: Negative or not required by law. Electronically signed by: Alberto Ragland M.D. 04/06/2021 7:10 PM Hospital Course (1) Pancreatitis: Acute pancreatitis H/O recurrent pancreatitis Etiology unclear-idiopathic? Alcohol-related? Patient is 35-year-old female with history recurrent pancreatitis, ADD, anxiety scented to ER with complaint of abdominal pain x1 day. Upper abdominal pain radiating to back, nausea. Prior h/o pancreatitic surgery as a child. 2 glasses wine last night. In ER patient afebrile, P: 109 down to 94, BP 114/76, 99% on room air. WBC: 19, lipase: 21,000, T bili: 1.0, AST: 75, ALT: 70, alk phos: 89 In ER given Toradol, Dilaudid, 1 L NSS, Zofran 04/07/2021 MRCP: 1. CT findings characteristic of pancreatitis are again seen with peripancreatic fluid and fluid extending into the subhepatic space. 2. It appears that the patient is status post previous cholecystectomy. Clinical correlation is necessary. 3. There is mild dilatation of the common bile duct which is most likely physiologic status post cholecystectomy. No intraluminal filling defects or evidence for choledocholithiasis. Given IV lactated Ringer's, bowel rest, analgesics Abdominal pain mostly resolved Afebrile Lipase level trending down from 21,000-2000 Tolerating clear liquids well, advance to soft diet GI recommending outpatient endoscopic ultrasound in 4 to 6 weeks Advised to avoid alcohol (2) ADD (attention deficit disorder): (3) Anxiety: Continue home meds DVT Prophylaxis -SCDs plan of care discussed with patient in detail and at length all questions answered she is understanding, agreeable, comfortable with the plan of care
== END 2021-04-07 17:52 | disposition home or self-care (01) | DRG 440 ==
LOC: ED 12:50 → EDINP 17:29 → INTOOBSV 17:29 → 4N 21:09
DX: Z79.899 Other long term (current) drug therapy; Z87.738 Personal history of other specified (corrected) congenital malformations of digestive system; Z87.891 Personal history of nicotine dependence; F41.9 Anxiety disorder, unspecified; K85.90 Acute pancreatitis without necrosis or infection, unspecified; F90.9 Attention-deficit hyperactivity disorder, unspecified type